=== PATIENT | male | born 1980 | race Two or more races ===

== ENCOUNTER 2019-11-14 11:01 | Outpatient (CLI) | payer OTHER | END 2019-11-14 11:09 | disposition home or self-care (01) | LOC: SONOGRAMA 11:01 | PROVIDERS: ATTEND General Practice | DX: R10.11 Right upper quadrant pain (principal); Z00.8 Encounter for other general examination ==

== ENCOUNTER 2019-11-14 12:19 | Outpatient (CLI) | payer OTHER | END 2019-11-14 15:00 | disposition home or self-care (01) | LOC: LAB 12:19 | PROVIDERS: ATTEND General Practice | DX: R10.11 Right upper quadrant pain (principal); Z00.8 Encounter for other general examination; Z13.6 Encounter for screening for cardiovascular disorders; Z12.11 Encounter for screening for malignant neoplasm of colon ==

== ENCOUNTER 2019-11-15 10:13 | Outpatient (CLI) | payer OTHER | END 2019-11-15 10:29 | disposition home or self-care (01) | LOC: LAB 10:13 | PROVIDERS: ATTEND General Practice | DX: R10.11 Right upper quadrant pain (principal); Z00.8 Encounter for other general examination; Z13.6 Encounter for screening for cardiovascular disorders; Z12.11 Encounter for screening for malignant neoplasm of colon ==